=== PATIENT | female | born 1995 | race Caucasian/White ===

== ENCOUNTER 2019-07-05 21:43 | Inpatient (IN) | payer MEDICAID ==
[~2019-07-05] VITALS: Ht 154.9 cm; Wt 74.5 kg
[2019-07-05 22:03] VITALS: BP 129/72
[2019-07-05] MEDS ORDERED: NEWBORN KIT ONE (22:46)
[2019-07-05] MEDS ORDERED: LIDOCAINE 1%, 20ML ONE (22:46)
[2019-07-05] MEDS ORDERED: OXYTOCIN 30U/ 0.9% NaCL 500ML 500 ML ONE (22:46)
[2019-07-05] MEDS ORDERED: MISOPROSTOL 200 MCG TABLET ONE (22:46)
[2019-07-05] MEDS ORDERED: D5%-LACTATED RINGERS 1,000 ML IV SCH (23:02)
[2019-07-05] MEDS ORDERED: OXYTOCIN 30U/ 0.9% NaCL 500ML 500 ML IV ONE (23:02)
[2019-07-05 23:15] LABS: BASOPHILS # (AUTO) 0.03 x10^3/uL (0-0.1); BASOPHILS % (AUTO) 0 % (0-1); EOSINOPHILS % (AUTO) 0 % (1-7); LYMPHOCYTES # (AUTO) 0.96 x10^3/uL (1-3.4); LYMPHOCYTES % (AUTO) 11 % (22-44); MD NO; MEAN CORPUSCULAR HEMOGLOBIN 30.3 pg (27.0-34.8); MEAN CORPUSCULAR HGB CONC 33.2 g/dL (32.4-35.8); MEAN CORPUSCULAR VOLUME 91.3 fL (80-100); MEAN PLATELET VOLUME 9.4 fL (7.4-10.4); MONOCYTES # (AUTO) 0.39 x10^3/uL (0.2-0.8); MONOCYTES % (AUTO) 5 % (2-9); NEUTROPHILS # (AUTO) 7.22 x10^3/uL (1.8-6.8); NEUTROPHILS % (AUTO) 84 % (42-75); PLATELET COUNT 195 x10^3/uL (130-400); RED BLOOD COUNT 3.65 x10^6/uL (3.82-5.3); RED CELL DISTRIBUTION WIDTH 13.4 % (9.6-15.2)
[2019-07-05] MEDS ORDERED: FENTANYL PF 100 MCG/2ML ONE (23:17)
[2019-07-05] MEDS ORDERED: FENTANYL/BUPIV./NS/PF 250 ML EPIDCONT SCH (23:18)
[2019-07-05] MEDS ORDERED: LACTATED RINGERS 1,000 ML IV SCH (23:18)
[2019-07-05] MEDS ORDERED: FENTANYL PF 100 MCG/2ML IVPush PRN (23:30)
[2019-07-05] MEDS ORDERED: EPHEDRINE 50 MG/ML, 1ML IVPush PRN (23:30)
[2019-07-05] MEDS ORDERED: METOCLOPRAMIDE 5 MG/ML, 2ML IVPush PRN (23:30)
[2019-07-05] MEDS ORDERED: SODIUM CITRATE/CITRIC ACID 30 ML UDC PO PRN (23:30)
[2019-07-05] MEDS ORDERED: ONDANSETRON 2MG/ML, 2ML IVPush PRN (23:30)
[2019-07-05] MEDS ORDERED: LACTATED RINGERS 1,000 ML IVBOLUS PRN (23:30)
[2019-07-05] MEDS ORDERED: ALUMINUM/MAG/SIMETHICONE 30 ML UDC PO PRN (23:30)
[2019-07-05] MEDS ORDERED: TERBUTALINE 1 MG/ML, 1ML IVPush PRN (23:30)
[2019-07-05] MEDS ORDERED: TERBUTALINE 1 MG/ML, 1ML SQ PRN (23:30)
[2019-07-05] MEDS ORDERED: FENTANYL PF 100 MCG/2ML IV PRN (23:30)
[2019-07-05] MEDS ORDERED: CALCIUM CARBONATE 500 MG TAB.CHEW PO PRN (23:30)
[2019-07-05] MEDS ORDERED: FENTANYL PF 500 MCG, BUPIVACAINE/PF 0.5%, 30ML 62.5 ML in SODIUM CHLORIDE 0.9% 177.5 ML EPIDCONT SCH (23:45)
[2019-07-05] MEDS: LACTATED RINGERS 1,000 ML IV SCH (23:52)
[2019-07-06] MEDS ORDERED: BUPIVACAINE 0.25% ONE (00:12)
[2019-07-06] MEDS ORDERED: LIDOCAINE/PF 1.5% EPI 1:200K, 10 ML ONE (00:12)
[2019-07-06] MEDS ORDERED: LACTATED RINGERS 1,000 ML IV SCH (00:56)
[2019-07-06] MEDS ORDERED: FENTANYL/BUPIV./NS/PF 250 ML EPIDCONT SCH (00:56)
[2019-07-06] MEDS ORDERED: LACTATED RINGERS 1,000 ML IVBOLUS PRN (01:00)
[2019-07-06] MEDS ORDERED: EPHEDRINE 50 MG/ML, 1ML IVPush PRN (01:00)
[2019-07-06] MEDS ORDERED: NALOXONE 0.4 MG/ML, 1ML IVPush PRN (01:00)
[2019-07-06] MEDS ORDERED: ACETAMINOPHEN 325 MG TABLET ONE ×2 (01:31→06:25)
[2019-07-06] MEDS: LACTATED RINGERS 1,000 ML IV SCH (01:33)
[2019-07-06] MEDS: ACETAMINOPHEN 325 MG TABLET PO PRN ×2 (01:33→06:27)
[2019-07-06] MEDS ORDERED: ONDANSETRON 2MG/ML, 2ML ONE (05:04)
[2019-07-06] MEDS ORDERED: OXYTOCIN 30U/ 0.9% NaCL 500ML 500 ML IV PRN (10:16)
[2019-07-06] MEDS ORDERED: OXYcodone/APAP 5/325MG TABLET ONE ×2 (10:44→16:22)
[2019-07-06] MEDS ORDERED: OXYcodone/APAP 5/325MG TABLET PO ONE (11:30)
[2019-07-06] MEDS ORDERED: METOCLOPRAMIDE 5 MG/ML, 2ML ONE (11:45)
[2019-07-06] MEDS ORDERED: SODIUM CITRATE/CITRIC ACID 30 ML UDC ONE (11:45)
[2019-07-06] MEDS: AMPICILLIN 2 GM in SODIUM CHLORIDE 0.9% 100 ML IV SCH ×2 (14:00→20:55)
[2019-07-06] MEDS ORDERED: CARBOPROST TROMETHAMINE 250 MCG/ML, 1ML IM PRN (14:30)
[2019-07-06] MEDS ORDERED: MISOPROSTOL 200 MCG TABLET PR PRN (14:30)
[2019-07-06] MEDS ORDERED: METHYLERGONOVINE 0.2 MG/ML IM PRN (14:30)
[2019-07-06] MEDS ORDERED: SIMETHICONE 80 MG CHEW TAB PO PRN (14:30)
[2019-07-06] MEDS ORDERED: OXYTOCIN 30U/ 0.9% NaCL 500ML 500 ML ONE (14:58)
[2019-07-06] MEDS ORDERED: IBUPROFEN 800 MG TABLET ONE (14:58)
[2019-07-06] MEDS ORDERED: PHARMACOKINETIC CONSULTATION MC ONE (15:00)
[2019-07-06] MEDS: IBUPROFEN 800 MG TABLET PO PRN ×2 (15:00→23:43)
[2019-07-06] MEDS ORDERED: PHARMACOKINETIC MONITORING MC PRN (15:00)
[2019-07-06] MEDS ORDERED: GENTAMICIN PER PHARMACY MC PRN (15:00)
[2019-07-06] MEDS: OXYTOCIN 30U/ 0.9% NaCL 500ML 500 ML IV SCH (15:00)
[2019-07-06] MEDS: GENTAMICIN 120 MG in SODIUM CHLORIDE 0.9% 50 ML IV SCH ×2 (15:22→23:44)
[2019-07-06] MEDS: OXYcodone/APAP 5/325MG TABLET PO PRN ×2 (16:23→20:43)
[2019-07-06 17:10] VITALS: BP 113/74
[2019-07-06 20:00] VITALS: BP 116/76
[2019-07-06 23:35] LABS: MEAN CORPUSCULAR HEMOGLOBIN 30.3 pg (27.0-34.8); MEAN CORPUSCULAR HGB CONC 33.3 g/dL (32.4-35.8); MEAN CORPUSCULAR VOLUME 90.9 fL (80-100); MEAN PLATELET VOLUME 8.1 fL (7.4-10.4); PLATELET COUNT 169 x10^3/uL (130-400); RED BLOOD COUNT 3.15 x10^6/uL (3.82-5.3)
[2019-07-06 23:42] LABS: CREATININE 0.73 mg/dL (0.55-1.02)
[2019-07-07 00:03] VITALS: BP 117/79
[2019-07-07 00:12] LABS: BASOPHILS # (AUTO) 0.01 x10^3/uL (0-0.1); BASOPHILS % (AUTO) 0 % (0-1); EOSINOPHILS % (AUTO) 0 % (1-7); LYMPHOCYTES # (AUTO) 1.24 x10^3/uL (1-3.4); LYMPHOCYTES % (AUTO) 6 % (22-44); MD SCAN; MONOCYTES # (AUTO) 1.18 x10^3/uL (0.2-0.8); MONOCYTES % (AUTO) 6 % (2-9); NEUTROPHILS # (AUTO) 18.17 x10^3/uL (1.8-6.8); NEUTROPHILS % (AUTO) 88 % (42-75)
[2019-07-07] MEDS: OXYTOCIN 30U/ 0.9% NaCL 500ML 500 ML IV SCH ×4 (00:29→21:00)
[2019-07-07] MEDS: OXYcodone/APAP 5/325MG TABLET PO PRN ×4 (01:30→23:16)
[2019-07-07] MEDS: AMPICILLIN 2 GM in SODIUM CHLORIDE 0.9% 100 ML IV SCH ×2 (03:00→09:35)
[2019-07-07 04:20] VITALS: BP 107/69
[2019-07-07] MEDS: DOCUSATE 100 MG CAPSULE PO PRN ×2 (07:29→23:10)
[2019-07-07] MEDS: GENTAMICIN 120 MG in SODIUM CHLORIDE 0.9% 50 ML IV SCH (07:29)
[2019-07-07] MEDS: PRENATAL VIT/IRON/FA 1 EACH TABLET PO SCH (07:30)
[2019-07-07] MEDS: IBUPROFEN 800 MG TABLET PO PRN ×2 (07:30→17:09)
[2019-07-07 07:50] VITALS: BP 127/86
[2019-07-07 13:00] VITALS: BP 118/77
[2019-07-07 19:30] VITALS: BP 128/85
[2019-07-08 07:23] VITALS: BP 122/83
[2019-07-08] MEDS: DOCUSATE 100 MG CAPSULE PO PRN (07:29)
[2019-07-08] MEDS: IBUPROFEN 800 MG TABLET PO PRN (07:29)
[2019-07-08] MEDS: PRENATAL VIT/IRON/FA 1 EACH TABLET PO SCH (07:29)
[2019-07-08] MEDS: OXYcodone/APAP 5/325MG TABLET PO PRN ×2 (07:29→11:47)
[2019-07-08] MEDS ORDERED: OXYC-302 PO (09:42)
[2019-07-08] MEDS ORDERED: IBUP-1223 PO (09:42)
== END 2019-07-08 12:34 | disposition home or self-care (01) | DRG 807 ==
LOC: LDOP 21:43 → LDIP 22:44 → 2NW 07-06 16:35
PROVIDERS: ADMIT Obstetrics & Gynecology; ATTEND Obstetrics & Gynecology
PROC: 10E0XZZ Delivery of Products of Conception, External Approach (ICD-10-PCS; principal; 2019-07-07)
PROC: 00HU33Z Insertion of Infusion Device into Spinal Canal, Percutaneous Approach (ICD-10-PCS; 2019-07-07)
PROC: 3E0R3BZ Introduction of Anesthetic Agent into Spinal Canal, Percutaneous Approach (ICD-10-PCS; 2019-07-07)
PROC: 10907ZC Drainage of Amniotic Fluid, Therapeutic from Products of Conception, Via Natural or Artificial Opening (ICD-10-PCS; 2019-07-07)
DX: O41.1230 Chorioamnionitis, third trimester, not applicable or unspecified (principal); Z37.0 Single live birth; Z3A.39 39 weeks gestation of pregnancy
CPT/HCPCS: 36415; J7121; S0020; 82565; 85025; 86592; 86850; 86900; G0378; J0290; J3010; J3490; J1580; J2590; J7050; J7120